=== PATIENT | female | born 1960 | race Two or more races ===

== ENCOUNTER 2022-07-28 14:52 | Inpatient (IN) | payer MEDICAID, OTHER ==
[~2022-07-28] VITALS: Ht 152.4 cm; Wt 69.4 kg
[2022-07-28 15:53] LABS: Basophils # (auto) 0.1 10 ^3/uL (0-0.2); Eosinophils # (auto) 0.4 10 ^3/uL (0-0.8); Lymphocytes # (auto) 1.4 10 ^3/uL (0.4-5.4); Monocytes # (auto) 0.6 10 ^3/uL (0-1.3)
[2022-07-28 15:55] LABS: Eosinophils % (auto) 5.6 % (0.0-7.0); Hematocrit 25.7 % (36.0-46.0); Hemoglobin 8.9 g/dL (12.2-16.2); Lymphocytes % (auto) 18.8 % (10.0-50.0); Mean Corpuscular Hemoglobin 37.9 pg (28.0-32.0); Mean Corpuscular Hgb Conc. 34.5 g/dL (32.0-36.0); Mean Corpuscular Volume 109.9 fL (80.0-100.0); Monocytes % (auto) 7.4 % (0.0-12.0); Neutrophils # (auto) 5.1 10 ^3/uL (1.6-8.6); Neutrophils % (auto) 67.2 % (37.0-80.0); Nucleated Red Blood Cells % 0.1 %; Red Blood Cells 2.34 10^6/uL (4.0-5.20); Red Cell Distribution Width 14.7 % (11.8-14.3); White Blood Cell 7.6 10^3/uL (4.4-10.8)
[2022-07-28 16:11] LABS: BUN/Creatinine Ratio 25.1; Calcium 8.3 mg/dL (8.5-10.1); Potassium 3.3 mmol/L (3.5-5.1)
[2022-07-28 16:13] LABS: Bilirubin, Total 6.8 mg/dL (0.2-1.0); Total Protein 7.2 g/dL (6.4-8.2)
[2022-07-28 16:20] LABS: INR 2.27 (0.9-1.15)
[2022-07-28] MEDS ORDERED: LACTULOSE 10g/15ml SOLN 473ML PR ONE (17:00)
[2022-07-28] MEDS ORDERED: ONDANSETRON HCL 4 MG/2 ML VIAL IV PRN (17:15)
[2022-07-28] MEDS: SODIUM CHLORIDE 0.9% 1,000 ML IV SCH (17:30)
[2022-07-28] MEDS ORDERED: PANTOPRAZOLE 40 MG/10 ML VIAL INJ IV ONE (17:30)
[2022-07-28] MEDS ORDERED: FUROSEMIDE 20 MG/2 ML VIAL IV ONE (17:30)
[2022-07-28] MEDS ORDERED: ALBUMIN 25% 50 ML IV ONE (17:30)
[2022-07-28 17:34] LABS: Lactic Acid w/Reflex 2.6 mmol/L (0.4-2.0)
[2022-07-28 18:21] LABS: % Iron Saturation 86.9 % (15-50)
[2022-07-28 18:23] LABS: Albumin 1.9 g/dL (3.4-5.0); Magnesium 1.9 mg/dL (1.6-2.6)
[2022-07-28 18:25] LABS: Bilirubin, Direct 3.7 mg/dL (0-0.2); Bilirubin, Total 6.4 mg/dL (0.2-1.0); Total Protein 7.3 g/dL (6.4-8.2)
[2022-07-28] MEDS: LACTULOSE 10g/15ml SOLN 473ML PR SCH (20:00)
[2022-07-28] MEDS ORDERED: diphenhdrAMINE HCL 50 MG/1 ML VL IV ONE (22:15)
[2022-07-29] VITALS (7 sets, daily range): BP systolic 75–116; BP diastolic 42–68
[2022-07-29] MEDS ORDERED: methylPREDNISolone SOD SUCC 125 MG/2 ML VL IV STA (00:08)
[2022-07-29] MEDS ORDERED: FAMOTIDINE (10MG/ML) 2ML VL IV ONE (00:19)
[2022-07-29] MEDS: POTASSIUM CHL 20MEQ/100ML 100 ML IV SCH ×2 (00:38→02:24)
[2022-07-29] MEDS ORDERED: LACTULOSE 20Gm/30ML SOLN ONE ×2 (01:36→01:43)
[2022-07-29] MEDS: LACTULOSE 10g/15ml SOLN 473ML PR SCH ×5 (01:43→23:37)
[2022-07-29] MEDS: SODIUM CHLORIDE 0.9% 1,000 ML IV SCH ×2 (03:30→13:53)
[2022-07-29 06:58] LABS: Albumin 1.9 g/dL (3.4-5.0); Calcium 8.4 mg/dL (8.5-10.1); Potassium 3.5 mmol/L (3.5-5.1)
[2022-07-29 07:03] LABS: Bilirubin, Total 7.4 mg/dL (0.2-1.0); Total Protein 7.2 g/dL (6.4-8.2)
[2022-07-29] MEDS ORDERED: BUME1TAB3 PO (09:27)
[2022-07-29] MEDS ORDERED: RIFA550T PO (09:27)
[2022-07-29] MEDS ORDERED: CEPH500C PO (09:27)
[2022-07-29] MEDS ORDERED: METO5TAB5 PO (09:27)
[2022-07-29] MEDS ORDERED: ONDA-188 (09:27)
[2022-07-29] MEDS ORDERED: TRAZ50TA2 PO (09:27)
[2022-07-29] MEDS ORDERED: HYDR5CRE3 PR (09:27)
[2022-07-29] MEDS ORDERED: LACT10SO3 PO (09:27)
[2022-07-29] MEDS ORDERED: FUR20T PO (09:27)
[2022-07-29] MEDS ORDERED: LACT10SO60 PO (09:27)
[2022-07-29] MEDS ORDERED: FAMOTIDINE (10MG/ML) 2ML VL IV SCH (10:00)
[2022-07-29] MEDS ORDERED: PANTOPRAZOLE 40 MG/10 ML VIAL INJ IV SCH (10:00)
[2022-07-29] MEDS: LACTULOSE 20Gm/30ML SOLN PO SCH ×3 (13:53→23:36)
[2022-07-29 14:58] LABS: Basophils # (auto) 0 10 ^3/uL (0-0.2); Basophils % (auto) 0.3 % (0.0-2.0); Eosinophils # (auto) 0 10 ^3/uL (0-0.8); Hematocrit 26.4 % (36.0-46.0); Lymphocytes # (auto) 0.8 10 ^3/uL (0.4-5.4); Monocytes # (auto) 0.1 10 ^3/uL (0-1.3); Monocytes % (auto) 1.3 % (0.0-12.0); Neutrophils # (auto) 4.9 10 ^3/uL (1.6-8.6); Nucleated Red Blood Cells % 0.3 %; White Blood Cell 5.8 10^3/uL (4.4-10.8)
[2022-07-29 15:00] LABS: Eosinophils % (auto) 0.3 % (0.0-7.0); Lymphocytes % (auto) 14.1 % (10.0-50.0); Mean Corpuscular Hemoglobin 37.4 pg (28.0-32.0); Mean Corpuscular Volume 109.8 fL (80.0-100.0); Red Cell Distribution Width 14.9 % (11.8-14.3)
[2022-07-29] MEDS ORDERED: SODIUM CHLORIDE 0.9% 250 ML IV ONE (16:30)
[2022-07-29] MEDS ORDERED: cefTRIAXone 1GM/50ML D5W 50 ML IV ONE (16:30)
[2022-07-29] MEDS: rifAXIMin 550 MG TAB PO SCH (17:00)
[2022-07-29 19:22] LABS: Urine Bacteria FEW /hpf (None Seen); Urine Blood 3+ /uL (Negative); Urine Hyaline Cast MOD /lpf (0 - 2); Urine Mucus FEW (None Seen); Urine Specific Gravity 1.013 (1.001-1.035); Urine WBC 62 /hpf (0 - 5)
[2022-07-30 04:00] VITALS: BP 104/55
[2022-07-30] MEDS: rifAXIMin 550 MG TAB PO SCH ×2 (05:00→17:00)
[2022-07-30 05:46] LABS: Hematocrit 23.5 % (36.0-46.0); Hemoglobin 8.1 g/dL (12.2-16.2); Mean Corpuscular Hemoglobin 38.3 pg (28.0-32.0); Mean Corpuscular Hgb Conc. 34.4 g/dL (32.0-36.0); Mean Corpuscular Volume 111.1 fL (80.0-100.0); Red Blood Cells 2.12 10^6/uL (4.0-5.20); Red Cell Distribution Width 15.2 % (11.8-14.3); White Blood Cell 8.8 10^3/uL (4.4-10.8)
[2022-07-30 05:48] LABS: Band Neutrophils % (manual) 0
[2022-07-30 05:49] LABS: Basophils % (manual) 0 (0.0-2.0); Blast Cells 0; Metamyelocytes % 0; Myelocytes % 0; Potassium 3.4 mmol/L (3.5-5.1); Promyelocytes % 0; Reactive Lymphocytes 0
[2022-07-30 05:55] LABS: BUN/Creatinine Ratio 25.2; Bilirubin, Total 6.6 mg/dL (0.2-1.0); Total Protein 6.8 g/dL (6.4-8.2)
[2022-07-30] MEDS: LACTULOSE 10g/15ml SOLN 473ML PR SCH ×4 (05:58→18:25)
[2022-07-30] MEDS: LACTULOSE 20Gm/30ML SOLN PO SCH ×3 (05:58→18:07)
[2022-07-30] MEDS: SODIUM CHLORIDE 0.9% 1,000 ML IV SCH (05:58)
[2022-07-30 08:37] LABS: Eosinophils % (manual) 2 (0-7); Lymphocytes % (manual) 19 (10.0-50.0); Monocytes % (manual) 7 (0-12)
[2022-07-30 09:00] VITALS: BP 88/49
[2022-07-30 13:00] VITALS: BP 96/64
[2022-07-30] MEDS ORDERED: PHYTONADIONE (VIT K)10 MG/ML 1ML VIAL SUBCUT ONE (13:15)
[2022-07-30 17:00] VITALS: BP 97/46
[2022-07-30 22:00] VITALS: BP 98/52
[2022-07-31] VITALS (12 sets, daily range): BP systolic 90–181; BP diastolic 40–102
[2022-07-31] MEDS: LACTULOSE 20Gm/30ML SOLN PO SCH ×4 (00:10→18:05)
[2022-07-31] MEDS: SODIUM CHLORIDE 0.9% 1,000 ML IV SCH (01:55)
[2022-07-31 04:56] LABS: Red Blood Cells 2.07 10^6/uL (4.0-5.20); Red Cell Distribution Width 15.1 % (11.8-14.3)
[2022-07-31 04:59] LABS: Hemoglobin 7.8 g/dL (12.2-16.2); Mean Corpuscular Hemoglobin 37.6 pg (28.0-32.0); Mean Corpuscular Hgb Conc. 33.8 g/dL (32.0-36.0); Mean Corpuscular Volume 111.2 fL (80.0-100.0); White Blood Cell 8.8 10^3/uL (4.4-10.8)
[2022-07-31 05:14] LABS: Albumin 1.9 g/dL (3.4-5.0)
[2022-07-31 05:17] LABS: BUN/Creatinine Ratio 24.8; Calcium 8.3 mg/dL (8.5-10.1)
[2022-07-31] MEDS: rifAXIMin 550 MG TAB PO SCH ×2 (05:19→17:06)
[2022-07-31 05:34] LABS: Bilirubin, Total 5.6 mg/dL (0.2-1.0); Total Protein 6.8 g/dL (6.4-8.2)
[2022-07-31 05:52] LABS: Band Neutrophils % (manual) 0; Basophils % (manual) 0 (0.0-2.0); Blast Cells 0; Metamyelocytes % 0; Myelocytes % 0; Promyelocytes % 0; Reactive Lymphocytes 0
[2022-07-31] MEDS: LACTULOSE 10g/15ml SOLN 473ML PR SCH (06:00)
[2022-07-31 06:03] LABS: Potassium 2.9 mmol/L (3.5-5.1)
[2022-07-31 06:20] LABS: INR 2.52 (0.9-1.15); Partial Thromboplastin Time 61.8 sec (24.6-33.4)
[2022-07-31] MEDS ORDERED: POTASSIUM CHL 20MEQ/100ML 100 ML IV STA (07:29)
[2022-07-31] MEDS ORDERED: SODIUM CHLORIDE 0.9% 2,000 ML IV STA (07:34)
[2022-07-31 08:13] LABS: Eosinophils % (manual) 2 (0-7); Lymphocytes % (manual) 17 (10.0-50.0); Monocytes % (manual) 8 (0-12)
[2022-07-31 09:21] LABS: BUN/Creatinine Ratio 27.3; Calcium 8.1 mg/dL (8.5-10.1)
[2022-07-31 09:29] LABS: Hepatitis B Surface Antibody Negative (Negative)
[2022-07-31 10:07] LABS: Hepatitis A Total Antibody Positive (Negative)
[2022-07-31 10:36] LABS: Lactic Acid w/Reflex 4.4 mmol/L (0.4-2.0)
[2022-07-31] MEDS: ALBUMIN 25% 100 ML IV SCH ×2 (12:15→20:31)
[2022-07-31 12:41] LABS: Hepatitis C Antibody Negative (Negative)
[2022-07-31 12:53] LABS: Magnesium 2.4 mg/dL (1.6-2.6); Phosphorus 4.6 mg/dL (2.5-4.90)
[2022-07-31 13:56] LABS: Protein, Urine 22.2 mg/dL (0.0-11.9)
[2022-07-31] MEDS: OCTREOTIDE ACETATE 100 MCG/ML VL SUBCUT SCH ×2 (15:40→21:41)
[2022-07-31] MEDS: POTASSIUM CHL 20MEQ/100ML 100 ML IV SCH ×3 (15:41→20:20)
[2022-07-31] MEDS: SODIUM BICARBONATE 50ML VIAL 50 ML in SOD CHL 0.45% 1,000 ML IV SCH ×2 (15:41→22:45)
[2022-07-31] MEDS: MIDODRINE HCL 10 MG TAB PO SCH (18:05)
[2022-07-31] MEDS ORDERED: ERGOCALCIFEROL 50,000 UNIT(1.25MG) CAP PO SCH (19:00)
[2022-07-31] MEDS ORDERED: SUCCINYLCHOLINE CHLORIDE 20 MG/ML 10ML VIAL IV ONE ×2 (22:46→23:15)
[2022-07-31] MEDS ORDERED: ETOMIDATE (2MG/ML) 20ML VIAL IV ONE ×2 (22:47→23:15)
[2022-07-31] MEDS ORDERED: PROPOFOL 100 ML IV ONE (23:02)
[2022-07-31] MEDS: PROPOFOL 100 ML IV SCH (23:15)
[2022-07-31] MEDS: MIDAZOLAM DRIP 50 mg/50mL 50 ML IV SCH (23:15)
[2022-08-01] VITALS (108 sets, daily range): BP systolic 76–151; BP diastolic 32–82
[2022-08-01 01:47] LABS: Basophils # (auto) 0 10 ^3/uL (0-0.2); Eosinophils # (auto) 0.6 10 ^3/uL (0-0.8); Monocytes # (auto) 0.6 10 ^3/uL (0-1.3)
[2022-08-01 01:49] LABS: Basophils % (auto) 0.2 % (0.0-2.0); Eosinophils % (auto) 4.2 % (0.0-7.0); Hematocrit 18.4 % (36.0-46.0); Lymphocytes # (auto) 1.3 10 ^3/uL (0.4-5.4); Lymphocytes % (auto) 9.8 % (10.0-50.0); Mean Corpuscular Hemoglobin 38.3 pg (28.0-32.0); Mean Corpuscular Volume 112.7 fL (80.0-100.0); Monocytes % (auto) 4.4 % (0.0-12.0); Neutrophils # (auto) 11.2 10 ^3/uL (1.6-8.6); Neutrophils % (auto) 81.4 % (37.0-80.0); Nucleated Red Blood Cells % 0.4 %; Red Blood Cells 1.63 10^6/uL (4.0-5.20); Red Cell Distribution Width 15.2 % (11.8-14.3); White Blood Cell 13.7 10^3/uL (4.4-10.8)
[2022-08-01 01:51] LABS: Hemoglobin 6.2 g/dL (12.2-16.2)
[2022-08-01] MEDS ORDERED: NOREPINEPHRINE 8 MG/250ML KIT 250 ML IV ONE (02:02)
[2022-08-01 02:09] LABS: BUN/Creatinine Ratio 25.4; Calcium 7.4 mg/dL (8.5-10.1); Potassium 3.6 mmol/L (3.5-5.1)
[2022-08-01] MEDS: NOREPINEPHRINE 8 MG/250ML KIT 250 ML IV SCH ×2 (02:10→23:33)
[2022-08-01 02:18] LABS: INR 2.92 (0.9-1.15)
[2022-08-01 02:19] LABS: Partial Thromboplastin Time 96.4 sec (24.6-33.4)
[2022-08-01 04:04] LABS: Hematocrit 17.9 % (36.0-46.0); Red Blood Cells 1.61 10^6/uL (4.0-5.20)
[2022-08-01 04:06] LABS: Basophils # (auto) 0.1 10 ^3/uL (0-0.2); Basophils % (auto) 0.4 % (0.0-2.0); Eosinophils # (auto) 0.4 10 ^3/uL (0-0.8); Eosinophils % (auto) 2.9 % (0.0-7.0); Lymphocytes # (auto) 1.8 10 ^3/uL (0.4-5.4); Lymphocytes % (auto) 13.4 % (10.0-50.0); Mean Corpuscular Hemoglobin 37.6 pg (28.0-32.0); Mean Corpuscular Hgb Conc. 33.9 g/dL (32.0-36.0); Monocytes # (auto) 1.1 10 ^3/uL (0-1.3); Monocytes % (auto) 7.8 % (0.0-12.0); Neutrophils # (auto) 10.2 10 ^3/uL (1.6-8.6); Neutrophils % (auto) 75.5 % (37.0-80.0); Nucleated Red Blood Cells % 0.2 %; Red Cell Distribution Width 15.4 % (11.8-14.3); White Blood Cell 13.6 10^3/uL (4.4-10.8)
[2022-08-01 04:19] LABS: Potassium 3.4 mmol/L (3.5-5.1)
[2022-08-01 04:27] LABS: Albumin 2.6 g/dL (3.4-5.0); BUN/Creatinine Ratio 29.2; Bilirubin, Total 4.8 mg/dL (0.2-1.0); Calcium 7.5 mg/dL (8.5-10.1); Total Protein 6.1 g/dL (6.4-8.2)
[2022-08-01 04:30] LABS: Hemoglobin 6.1 g/dL (12.2-16.2)
[2022-08-01] MEDS ORDERED: SODIUM BICARBONATE 8.4 % INJ 50ML VIAL IV ONE (04:30)
[2022-08-01] MEDS: SODIUM BICARBONATE 50ML VIAL 100 ML in SOD CHL 0.45% 1,000 ML IV SCH ×2 (04:30→16:13)
[2022-08-01] MEDS: rifAXIMin 550 MG TAB PO SCH ×2 (05:00→18:52)
[2022-08-01] MEDS: ALBUMIN 25% 100 ML IV SCH ×2 (05:08→14:16)
[2022-08-01] MEDS: LACTULOSE 20Gm/30ML SOLN PO SCH ×5 (06:00→23:32)
[2022-08-01] MEDS: MIDODRINE HCL 10 MG TAB PO SCH (06:00)
[2022-08-01] MEDS: OCTREOTIDE ACETATE 100 MCG/ML VL SUBCUT SCH ×3 (06:29→22:31)
[2022-08-01] MEDS: MIDAZOLAM DRIP 50 mg/50mL 50 ML IV SCH ×3 (08:10→23:33)
[2022-08-01] MEDS: PROPOFOL 100 ML IV SCH ×2 (10:34→21:31)
[2022-08-01] MEDS: VASOPRESSIN 50 UNITS in D5W 5% 247.5 ML IV SCH (14:14)
[2022-08-01] MEDS ORDERED: DOPamine 1600MCG/ML D5W 250 ML IV SCH (16:00)
[2022-08-01] MEDS ORDERED: PHYTONADIONE (VIT K)10 MG/ML 1ML VIAL SUBCUT ONE (17:00)
[2022-08-01] MEDS: POTASSIUM CHL 20MEQ/100ML 100 ML IV SCH ×3 (17:38→19:32)
[2022-08-01] MEDS ORDERED: phytonadione 10 MG in SODIUM CHL 0.9% 50 ML IV ONE (17:45)
[2022-08-01 20:45] LABS: Basophils # (auto) 0.1 10 ^3/uL (0-0.2); Basophils % (auto) 0.4 % (0.0-2.0); Eosinophils # (auto) 0.6 10 ^3/uL (0-0.8); Hemoglobin 9.6 g/dL (12.2-16.2); Monocytes # (auto) 0.5 10 ^3/uL (0-1.3); Neutrophils # (auto) 13.1 10 ^3/uL (1.6-8.6); Neutrophils % (auto) 78.6 % (37.0-80.0); White Blood Cell 16.7 10^3/uL (4.4-10.8)
[2022-08-01 20:46] LABS: Eosinophils % (auto) 3.6 % (0.0-7.0); Hematocrit 28.5 % (36.0-46.0); Lymphocytes # (auto) 2.5 10 ^3/uL (0.4-5.4); Lymphocytes % (auto) 14.7 % (10.0-50.0); Mean Corpuscular Hemoglobin 33.6 pg (28.0-32.0); Mean Corpuscular Hgb Conc. 33.7 g/dL (32.0-36.0); Mean Corpuscular Volume 99.6 fL (80.0-100.0); Monocytes % (auto) 2.7 % (0.0-12.0); Nucleated Red Blood Cells % 0.9 %; Red Blood Cells 2.86 10^6/uL (4.0-5.20)
[2022-08-01 21:02] LABS: INR 2.33 (0.9-1.15); Partial Thromboplastin Time 64.9 sec (24.6-33.4)
[2022-08-01 21:07] LABS: Amphetamine Screen, Urine NEGATIVE (NEGATIVE); Barbiturate Scree,Urine NEGATIVE (NEGATIVE); Benzodiazephine Screen, Urine POSITIVE (NEGATIVE); Cannabinoid Screen, Urine NEGATIVE (NEGATIVE); Cocaine Screen, Urine NEGATIVE (NEGATIVE); Opiate Scree,Urine NEGATIVE (NEGATIVE); Phencyclidine Screen, Urine NEGATIVE (NEGATIVE)
[2022-08-02] VITALS (86 sets, daily range): BP systolic 85–110; BP diastolic 35–51
[2022-08-02] MEDS: PROPOFOL 100 ML IV SCH ×6 (02:12→20:50)
[2022-08-02] MEDS: NOREPINEPHRINE 8 MG/250ML KIT 250 ML IV SCH ×3 (04:20→13:27)
[2022-08-02 05:22] LABS: Basophils # (auto) 0.1 10 ^3/uL (0-0.2); Eosinophils # (auto) 0.5 10 ^3/uL (0-0.8); Hematocrit 28.3 % (36.0-46.0); Hemoglobin 9.4 g/dL (12.2-16.2); Lymphocytes # (auto) 2.7 10 ^3/uL (0.4-5.4); Lymphocytes % (auto) 16.4 % (10.0-50.0); Mean Corpuscular Hgb Conc. 33.2 g/dL (32.0-36.0); Neutrophils # (auto) 12.6 10 ^3/uL (1.6-8.6)
[2022-08-02 05:24] LABS: Basophils % (auto) 0.5 % (0.0-2.0); Eosinophils % (auto) 3.3 % (0.0-7.0); Mean Corpuscular Hemoglobin 34.1 pg (28.0-32.0); Mean Corpuscular Volume 102.7 fL (80.0-100.0); Monocytes # (auto) 0.5 10 ^3/uL (0-1.3); Monocytes % (auto) 3.3 % (0.0-12.0); Neutrophils % (auto) 76.5 % (37.0-80.0); Nucleated Red Blood Cells % 1.4 %; Red Blood Cells 2.76 10^6/uL (4.0-5.20); Red Cell Distribution Width 24.1 % (11.8-14.3); White Blood Cell 16.5 10^3/uL (4.4-10.8)
[2022-08-02 05:39] LABS: Albumin 2.7 g/dL (3.4-5.0); BUN/Creatinine Ratio 20.1; Calcium 7.2 mg/dL (8.5-10.1); Potassium 4.5 mmol/L (3.5-5.1)
[2022-08-02 05:47] LABS: Bilirubin, Total 6.6 mg/dL (0.2-1.0); Total Protein 5.6 g/dL (6.4-8.2)
[2022-08-02] MEDS: rifAXIMin 550 MG TAB PO SCH ×2 (05:47→18:07)
[2022-08-02] MEDS: LACTULOSE 20Gm/30ML SOLN PO SCH ×3 (06:02→18:00)
[2022-08-02] MEDS: OCTREOTIDE ACETATE 100 MCG/ML VL SUBCUT SCH ×3 (06:03→22:35)
[2022-08-02] MEDS: MIDAZOLAM DRIP 50 mg/50mL 50 ML IV SCH ×4 (06:04→23:01)
[2022-08-02] MEDS ORDERED: FUROSEMIDE 100 MG/10ML VIAL IV ONE (08:15)
[2022-08-02] MEDS ORDERED: EPINEPHrine HCL 250 ML IV SCH (08:15)
[2022-08-02] MEDS ORDERED: PHENYLEPHRINE IV 250 ML IV SCH (08:15)
[2022-08-02] MEDS ORDERED: levoFLOXacin 500MG 100 ML IV ONE (10:30)
[2022-08-02] MEDS ORDERED: SODIUM BICARBONATE 8.4 % INJ 50ML VIAL IV ONE (11:30)
[2022-08-02] MEDS: EPINEPHrine HCL INJECTION 16 MG in D5W 5% 234 ML IV SCH (13:30)
[2022-08-02] MEDS: DOPamine 3200MCG/ML 250 ML IV SCH ×2 (13:30→20:31)
[2022-08-02] MEDS: ERTAPENEM SOD INJ 1 GM in SODIUM CHL 0.9% 50 ML IV SCH (13:59)
[2022-08-02] MEDS: PHENYLEPHRINE INJ 80 MG in SODIUM CHL 0.9% 242 ML IV SCH ×2 (14:50→23:56)
[2022-08-02] MEDS: VASOPRESSIN 50 UNITS in D5W 5% 247.5 ML IV SCH (14:50)
[2022-08-02] MEDS: NOREPINEPHRINE BITARTRATE 32 MG in SODIUM CHL 0.9% 218 ML IV SCH (18:00)
[2022-08-02] MEDS: PANTOPRAZOLE 40 MG/10 ML VIAL INJ IV SCH (22:35)
[2022-08-03] VITALS (68 sets, daily range): BP systolic 78–115; BP diastolic 17–47
[2022-08-03] MEDS: PROPOFOL 100 ML IV SCH ×4 (00:45→13:14)
[2022-08-03 04:12] LABS: Hemoglobin 8.9 g/dL (12.2-16.2)
[2022-08-03 04:15] LABS: Hematocrit 27.8 % (36.0-46.0); Mean Corpuscular Hemoglobin 35.8 pg (28.0-32.0); Mean Corpuscular Hgb Conc. 32.1 g/dL (32.0-36.0); Mean Corpuscular Volume 111.7 fL (80.0-100.0); Red Blood Cells 2.49 10^6/uL (4.0-5.20); White Blood Cell 15.6 10^3/uL (4.4-10.8)
[2022-08-03 04:21] LABS: Basophils % (manual) 0 (0.0-2.0); Blast Cells 0; Eosinophils % (manual) 0 (0-7); Metamyelocytes % 0; Myelocytes % 0; Promyelocytes % 0; Reactive Lymphocytes 0; Red Cell Distribution Width 23.6 % (11.8-14.3)
[2022-08-03 04:45] LABS: Band Neutrophils % (manual) 4; Lymphocytes % (manual) 15 (10.0-50.0); Monocytes % (manual) 4 (0-12)
[2022-08-03] MEDS: MIDAZOLAM DRIP 50 mg/50mL 50 ML IV SCH ×3 (05:06→10:21)
[2022-08-03] MEDS: OCTREOTIDE ACETATE 100 MCG/ML VL SUBCUT SCH ×2 (06:00→14:19)
[2022-08-03] MEDS: NOREPINEPHRINE BITARTRATE 32 MG in SODIUM CHL 0.9% 218 ML IV SCH (09:01)
[2022-08-03] MEDS: PHENYLEPHRINE INJ 80 MG in SODIUM CHL 0.9% 242 ML IV SCH (09:02)
[2022-08-03] MEDS: PANTOPRAZOLE 40 MG/10 ML VIAL INJ IV SCH (10:20)
[2022-08-03] MEDS: ERTAPENEM SOD INJ 1 GM in SODIUM CHL 0.9% 50 ML IV SCH (10:21)
[2022-08-03] MEDS: EPINEPHrine HCL INJECTION 16 MG in D5W 5% 234 ML IV SCH (10:55)
[2022-08-03] MEDS ORDERED: levoFLOXacin 250MG 50 ML IV SCH (11:00)
[2022-08-03] MEDS: DOPamine 3200MCG/ML 250 ML IV SCH (13:09)
[2022-08-03] MEDS: VASOPRESSIN 50 UNITS in D5W 5% 247.5 ML IV SCH (13:30)
[2022-08-03 15:17] LABS: Anion Gap 24 (5-15); Chloride 103 mmol/L (98-107); Sodium 135 mmol/L (136-145)
[2022-08-03 15:18] LABS: Alanine Aminotransferase 259 U/L (13-56); Albumin 1.8 g/dL (3.4-5.0); Alkaline Phosphatase 134 U/L (45-117); Aspartate Aminotransferase 1578 U/L (15-37); BUN/Creatinine Ratio 13.8; Bilirubin, Total 5.9 mg/dL (0.2-1.0); Blood Urea Nitrogen 64 mg/dL (7-18); Calcium 6.5 mg/dL (8.5-10.1); GFR African American 12 mL/min; GFR Non-African American 10 mL/min; Total Protein 4.4 g/dL (6.4-8.2)
[2022-08-03 15:21] LABS: Carbon Dioxide 8 mmol/L (21-32); Potassium 6.7 mmol/L (3.5-5.1)
[2022-08-03 15:23] LABS: Glucose 19 mg/dL (74-106)
[2022-08-03] MEDS ORDERED: SODIUM BICARBONATE 8.4% INJ 50ML SYRINGE IV ONE (16:30)
[2022-08-03] MEDS ORDERED: CALCIUM GLUC 1,000mg/50ml-NS 50 ML IV ONE (16:30)
[2022-08-03] MEDS ORDERED: InsuLIN REG 1unit/0.01ml Soln (100units/ml) IV ONE (16:30)
[2022-08-03] MEDS ORDERED: DEXTROSE (50%) 50ML SYRG IV ONE (16:30)
[2022-08-03] MEDS ORDERED: CLINIMIX PER PHARMACY 0 ML IV SCH ×2 (16:30→17:00)
[2022-08-03] MEDS ORDERED: phytonadione 10 MG in SODIUM CHL 0.9% 50 ML IV ONE ×2 (16:30→17:00)
[2022-08-03 18:05] LABS: Phosphorus 9.4 mg/dL (2.5-4.90)
[2022-08-03] MEDS ORDERED: MORPHINE SULFATE INJ 2 MG/ml SYRG IV PRN ×3 (18:30→18:45)
[2022-08-03] MEDS ORDERED: LORazepam 2MG/ML-1ML VIAL IV PRN (18:30)
[2022-08-03] MEDS ORDERED: AMINO ACID INFUSION IN D10W 1,000 ML IV NR (20:00)
[2022-08-04] MEDS ORDERED: DEXTROSE (50%) 50ML SYRG IV SCH
[2022-08-04] MEDS ORDERED: ACCU-CHEK COMFORT CURVE STRIP VI SCH
[2022-08-04] MEDS ORDERED: InsuLIN REG 1unit/0.01ml Soln (100units/ml) SC SCH
[2022-08-04] MEDS ORDERED: phytonadione 10 MG in SODIUM CHL 0.9% 50 ML IV SCH ×4 (10:00)
== END 2022-08-04 00:26 | DRG 720 ==
LOC: EDBD 14:52 → ER 14:52 → OVERFLOW 17:24 → CENTRAL 07-29 08:27 → ICU WEST 07-31 23:05
PROVIDERS: ADMIT Nurse Practitioner Family; ATTEND Internal Medicine
PROC: B54NZZA Ultrasonography of Left Upper Extremity Veins, Guidance (ICD-10-PCS; 2022-07-30)
PROC: 05HA33Z Insertion of Infusion Device into Left Brachial Vein, Percutaneous Approach (ICD-10-PCS; 2022-07-30)
PROC: 5A1945Z Respiratory Ventilation, 24-96 Consecutive Hours (ICD-10-PCS; principal; 2022-08-01)
PROC: 0BH17EZ Insertion of Endotracheal Airway into Trachea, Via Natural or Artificial Opening (ICD-10-PCS; 2022-08-01)
PROC: 30233N1 Transfusion of Nonautologous Red Blood Cells into Peripheral Vein, Percutaneous Approach (ICD-10-PCS; 2022-08-01)
PROC: 30233K1 Transfusion of Nonautologous Frozen Plasma into Peripheral Vein, Percutaneous Approach (ICD-10-PCS; 2022-08-01)
PROC: 02HV33Z Insertion of Infusion Device into Superior Vena Cava, Percutaneous Approach (ICD-10-PCS; 2022-08-01)
PROC: B548ZZA Ultrasonography of Superior Vena Cava, Guidance (ICD-10-PCS; 2022-08-01)
DX: A41.9 Sepsis, unspecified organism (principal); N17.0 Acute kidney failure with tubular necrosis; J96.00 Acute respiratory failure, unspecified whether with hypoxia or hypercapnia; K76.7 Hepatorenal syndrome; K72.00 Acute and subacute hepatic failure without coma; K76.82 Hepatic encephalopathy; D61.818 Other pancytopenia; E43 Unspecified severe protein-calorie malnutrition; E83.51 Hypocalcemia; K70.31 Alcoholic cirrhosis of liver with ascites; R65.21 Severe sepsis with septic shock; I21.4 Non-ST elevation (NSTEMI) myocardial infarction; K92.2 Gastrointestinal hemorrhage, unspecified; D68.4 Acquired coagulation factor deficiency; Z51.5 Encounter for palliative care; E86.0 Dehydration; E87.6 Hypokalemia; F10.10 Alcohol abuse, uncomplicated; Z82.49 Family history of ischemic heart disease and other diseases of the circulatory system; N18.9 Chronic kidney disease, unspecified; D53.9 Nutritional anemia, unspecified; N39.0 Urinary tract infection, site not specified; R13.10 Dysphagia, unspecified; Z68.30 Body mass index [BMI] 30.0-30.9, adult; I46.9 Cardiac arrest, cause unspecified; Z83.3 Family history of diabetes mellitus; I99.8 Other disorder of circulatory system; B96.20 Unspecified Escherichia coli [E. coli] as the cause of diseases classified elsewhere; E87.1 Hypo-osmolality and hyponatremia
CPT/HCPCS: 36415; 36600; 70450; 71045; 76705; 76775; 80048; 80053; 80076; 80307; 81001; 82140; 82306; 82570; 82805; 82962; 83540; 83550; 83605; 83690; 83735; 83880; 83970; 84100; 84156; 84300; 84484; 85007; 85025; 85027; 85610; 85730; 86704; 86706; 86708; 86803; 86850; 86900; 86901; 86920; 87040; 87070; 87077; 87081; 87086; 87088; 87186; 87205; 87340; 87426; 92610; 93306; 94002; 94003; 96360; 99291; C9113; G0378; J0171; J0330; J0696; J1265; J1335; J1815; J1956; J2250; J2405; J2704; J3430; J3480; J3490; J7060; P9047